=== PATIENT | female | born 1960 | race Caucasian/White ===

== ENCOUNTER → 2016-07-23 | Outpatient (REF) | payer OTHER ==
[~2016-07-23] MED LIST: AMBI10TA PO; AMLO10TA2 PO; CELE40TA PO; LEVO125T3 PO; LISI-538 PO; LORT5TAB PO; MOTR200T40 PO; PRIL20CA PO
== END ==
LOC: M SFHCLERA 14:13
PROVIDERS: ATTEND Physician Assistant
DX: R50.9 Fever, unspecified (principal)

== ENCOUNTER → 2018-08-31 | Outpatient (REF) | payer OTHER ==
[~2018-08-31] MED LIST changes: -AMLO10TA2 PO; +AMLO10TA5 PO; -LEVO125T3 PO; +LEVO125T4 PO; -MOTR200T40 PO; +MOTR200T44 PO; -PRIL20CA PO; +PRIL20CA9 PO
== END ==
LOC: M SFHCLERA 14:21
PROVIDERS: ATTEND Physician Assistant
DX: R50.9 Fever, unspecified (principal)

== ENCOUNTER → 2018-11-06 | Outpatient (REF) | payer OTHER | LOC: M SFHCLERA 09:47 | PROVIDERS: ATTEND Physician Assistant | DX: J02.9 Acute pharyngitis, unspecified (principal) ==

== ENCOUNTER → 2019-11-29 | Outpatient (REF) | payer OTHER ==
[2019-11-29 13:17] LABS: BASO % 0.4 % (0.0-1.0); HEMATOCRIT 45.7 % (36.0-47.0); HEMOGLOBIN 14.9 g/dl (12.0-15.5); LYMPH # 2.1 10^3/uL (1.5-5.0); LYMPH % 30.3 % (24.0-44.0); MEAN CORPUSCULAR HEMOGLOBIN 31.7 pg (27.0-33.0); MEAN CORPUSCULAR HGB CONC 32.6 g/dl (32.0-36.5); MEAN CORPUSCULAR VOLUME 97.2 fl (80.0-96.0); MONO # 0.5 10^3/uL (0.0-0.8); MONO % 7.4 % (0.0-5.0); NEUTROPHILS # 4.2 10^3/uL (1.5-8.5); NEUTROPHILS % 61.3 % (36.0-66.0); PLATELET COUNT, AUTOMATED 286 10^3/uL (150-450); WHITE BLOOD COUNT 6.8 10^3/uL (4.0-10.0)
[2019-11-29 13:34] LABS: ALT/SGPT 29 U/L (12-78); BILIRUBIN,TOTAL 0.3 MG/DL (0.2-1.0); BLOOD UREA NITROGEN 14 MG/DL (7-18); C REACTIVE PROTEIN QUANTITATIV 0.61 MG/DL (0.00-0.30); CALCIUM LEVEL 9.5 MG/DL (8.5-10.1); CARBON DIOXIDE LEVEL 30 MEQ/L (21-32); CHLORIDE LEVEL 107 MEQ/L (98-107); CHOLESTEROL LEVEL 293 MG/DL (<200); CHOLESTEROL RISK RATIO 4.439 (<5); CREATININE FOR GFR 0.58 MG/DL (0.55-1.30); FERRITIN 68 NG/ML (8-252); FREE T4 1.06 NG/DL (0.76-1.46); GLOMERULAR FILTRATION RATE > 60.0 (>51); GLUCOSE, FASTING 96 MG/DL (70-100); HDL CHOLESTEROL 66 MG/DL (>40); IRON (FE) 90 UG/DL (50-170); LDL CHOLESTEROL 202 MG/DL (<100); NON-HDL-C 227 MG/DL; POTASSIUM SERUM 4.5 MEQ/L (3.5-5.1); SODIUM LEVEL 140 MEQ/L (136-145); TOTAL PROTEIN 7.7 GM/DL (6.4-8.2); TRIGLYCERIDES LEVEL 124 MG/DL (<150); VITAMIN B12 LEVEL 807 PG/ML (247-911)
[2019-11-29 14:36] LABS: ERYTHROCYTE SEDIMENTATION RATE 11 mm/hr (0-30)
== END ==
LOC: M SFHCPLAZ 11:19
PROVIDERS: ATTEND Physician Assistant Medical
DX: M12.571 Traumatic arthropathy, right ankle and foot (principal); F51.01 Primary insomnia; E03.9 Hypothyroidism, unspecified; I10 Essential (primary) hypertension

== ENCOUNTER 2023-01-31 12:03 | Emergency (ER) | payer BC, OTHER ==
[~2023-01-31] VITALS: Ht 154.9 cm; Wt 108.6 kg
[~2023-01-31 12:03] MED LIST changes: -AMLO10TA5 PO; +AMLO1TAB25 PO; -LISI-538 PO; +LISI20TA33 PO
[2023-01-31 13:03] LABS: BASO % 0.3 % (0.0-1.0); HEMATOCRIT 42.2 % (36.0-47.0); HEMOGLOBIN 14.3 g/dl (12.0-15.5); LYMPH # 1.2 10^3/uL (1.5-5.0); LYMPH % 16.3 % (24.0-44.0); MEAN CORPUSCULAR HEMOGLOBIN 32.9 pg (27.0-33.0); MEAN CORPUSCULAR HGB CONC 33.9 g/dl (32.0-36.5); MONO # 0.6 10^3/uL (0.0-0.8); MONO % 8.2 % (2.0-8.0); NEUTROPHILS # 5.5 10^3/uL (1.5-8.5); NEUTROPHILS % 74.7 % (36.0-66.0); PLATELET COUNT, AUTOMATED 268 10^3/uL (150-450); RED BLOOD COUNT 4.35 10^6/uL (4.00-5.40); WHITE BLOOD COUNT 7.3 10^3/uL (4.0-10.0)
[2023-01-31 13:32] LABS: ETHYL ALCOHOL (ETHANOL) < 0.003 % (0.000-0.010)
[2023-01-31 13:33] LABS: ACETAMINOPHEN LEVEL < 2.0 UG/ML (10.0-20.0)
[2023-01-31 13:34] LABS: ALBUMIN 3.7 G/DL (3.2-5.2); ALKALINE PHOSPHATASE 84 U/L (46-116); ALT/SGPT 21 U/L (7.0-40); AST/SGOT 14 U/L (<34); BILIRUBIN,DIRECT 0.1 MG/DL (<0.4); BILIRUBIN,TOTAL 0.5 MG/DL (0.3-1.2); BLOOD UREA NITROGEN 10 MG/DL (9-23); CALCIUM LEVEL 9.4 MG/DL (8.3-10.6); CARBON DIOXIDE LEVEL 26 MMOL/L (20-31); CHLORIDE LEVEL 100 MMOL/L (98-107); CREATININE FOR GFR 0.56 MG/DL (0.55-1.30); GLOMERULAR FILTRATION RATE > 60.0 (>45); GLUCOSE, FASTING 98 MG/DL (74-106); SALICYLATE LEVEL < 3.0 MG/DL (<30); SODIUM LEVEL 133 MMOL/L (136-145); TOTAL PROTEIN 6.9 G/DL (5.7-8.2)
[2023-01-31 13:36] LABS: THYROID STIMULATING HORMONE 2.229 uIU/ML (0.55-4.78)
[2023-01-31 13:43] LABS: HCG, SERUM QUALITATIVE NEGATIVE (NEGATIVE)
[2023-01-31 13:47] LABS: CPK CREATINE PHOSPHOKINASE 98 U/L (34-145)
[2023-01-31 13:49] LABS: RSV AMPLIFICATION NEGATIVE (NEGATIVE)
[2023-01-31 16:03] LABS: AMPHETAMINES LEVEL URINE NEGATIVE (NEGATIVE); BARBITURATES URINE NEGATIVE (NEGATIVE); BENZODIAZEPINES URINE NEGATIVE (NEGATIVE); CANNABINOIDS URINE NEGATIVE (NEGATIVE); COCAINE METABOLITE URINE NEGATIVE (NEGATIVE); METHADONE URINE NEGATIVE (NEGATIVE); OPIATES URINE NEGATIVE (NEGATIVE); PHENCYCLIDINE URINE NEGATIVE (NEGATIVE)
[2023-01-31] MEDS ORDERED: LISI20TA37 PO (22:49)
[2023-01-31] MEDS ORDERED: ROSU10TA6 PO (22:49)
[2023-01-31] MEDS ORDERED: HOME MED LIST COMPLETE! XX SCH (23:05)
[2023-02-01] MEDS ORDERED: LEVOTHYROXINE 125MCG TABLET (0.125MG) PO SCH ×3 (06:00→07:25)
[2023-02-01 08:35] VITALS: BP 118/58
[2023-02-01] MEDS ORDERED: OMEPRAZOLE 20MG CAP PO SCH (09:00)
[2023-02-01] MEDS ORDERED: ACETAMINOPHEN TAB 650MG DOSE (2X325MG) PO ONE (09:55)
[2023-02-01] MEDS ORDERED: LORazepam 2 MG TAB PO ONE (10:40)
[2023-02-01 13:27] VITALS: BP 146/90; TEMP 98.1; O2SAT 98
[2023-02-01] MEDS ORDERED: CitaloPRAM (CeleXA) 20 MG TAB PO SCH (21:00)
[2023-02-01] MEDS ORDERED: ROSUVASTATIN 10 MG TAB (CRESTOR) PO SCH (21:00)
== END 2023-02-01 13:30 ==
LOC: EDBD 12:03 → M ED 12:03
DX: T50.901A Poisoning by unspecified drugs, medicaments and biological substances, accidental (unintentional), initial encounter (principal); R45.851 Suicidal ideations; F32.A Depression, unspecified; I10 Essential (primary) hypertension; E03.9 Hypothyroidism, unspecified; F41.9 Anxiety disorder, unspecified; Z88.0 Allergy status to penicillin; Z79.899 Other long term (current) drug therapy